=== PATIENT | female | born 1970 | race Caucasian/White ===

== ENCOUNTER 2022-11-05 14:35 | Outpatient (CLI) | payer OTHER, SELFPAY ==
--- NOTE | ~2022-11-05 | MM_ITS ---
EXAMINATION: MM screening clotilde BI w clement HISTORY: Screening mammogram TECHNIQUE: Craniocaudal and mediolateral oblique 3-D tomosynthesis images were obtained and synthetic 2-D images were generated. CAD analysis was submitted and interpreted. COMPARISON: No prior mammogram is available for comparison at this institution. BREAST PARENCHYMAL COMPOSITION: There are scattered areas of fibroglandular density. FINDINGS: RIGHT BREAST: An asymmetry is present in the middle third of the breast on the craniocaudal view. LEFT BREAST: There is focal asymmetry in the posterior third of the upper outer quadrant of the breas t. An asymmetry is present in the anterior/middle third of the breast on the craniocaudal view. IMPRESSION: 1. Bilateral breast findings as described above. 2. Additional mammographic views and possible breast ultrasound are recommended. BI-RADS Category 0: Incomplete: Needs additional imaging evaluation. Reviewed, dictated and finalized at location A. [employer] IMPRESSION: 1. Bilateral breast findings as described above. 2. Additional mammographic views and possible breast ultrasound are recommended . BI-RADS Category 0: Incomplete: Needs additional imaging evaluation.
== END 2022-11-05 14:36 | disposition home or self-care (01) ==
LOC: ANHIMG 14:38
PROVIDERS: PCP Family Medicine; Visit Provider Nurse Practitioner Obstetrics & Gynecology
DX: Z12.31 Encounter for screening mammogram for malignant neoplasm of breast (principal); R92.8 Other abnormal and inconclusive findings on diagnostic imaging of breast
CPT/HCPCS: 77063; 77067

== ENCOUNTER 2022-11-22 13:39 | Outpatient (CLI) | payer OTHER, SELFPAY ==
--- NOTE | ~2022-11-22 | MMUS_ITS ---
EXAMINATION: MM diagnostic clotilde BI w clement, US breast BI complete HISTORY: Follow-up breast asymmetries TECHNIQUE: Additional 3-D tomosynthesis images of the breasts were performed and synthetic 2-D images were generated. CAD analysis was submitted and interpreted. High resolution bilateral complete breas t ultrasound was performed. COMPARISON: 11/05/2022 BREAST PARENCHYMAL COMPOSITION: Breast composed of scattered areas of fibroglandular density FINDINGS: MAMMOGRAPHIC FINDINGS: There are no suspicious masses, calcifications or architectural distortion in either breast to sugges t malignancy. ULTRASOUND: Complete bilateral US of all 4 quadrants of the breasts and retroareolar region was reviewed. In the right breast at 1:00, 5 cm from the nipple, there is a 4 mm cyst. No suspicious masses are identified in either breast to suggest malignancy. IMPRESSION: 1. No evidence for malignancy in either breast. 2. Routine yearly screening mammogram and regular clinical breast examination are recommended. BI-RADS Category 1: Negative Reviewed, dictated and finalized at location A. IMPRESSION: 1. No evidence for malignancy in either breast. 2. Routine yearly screening mammogram and regular clinical breast examination a re recommended. BI-RADS Category 1: Negative
--- NOTE | ~2022-11-22 | US_ITS ---
EXAMINATION: US soft tissue chest DATE: 11/22/2022 15:26 INDICATION: Chest lump. TECHNIQUE: Multiple grayscale and Doppler ultrasound images of the chest were obtained. COMPARISON: None FINDINGS: The inferior aspect of the xiphoid process of the sternum is directed anteriorly, which cor relates with the patient's area of concern. There is no abnormal mass. IMPRESSION: 1. Normal xiphoid process of the sternum correlating with the patient's area of concern. Reviewed, dictated and finalized at location A.
== END 2022-11-22 13:40 | disposition home or self-care (01) ==
PROVIDERS: PCP Family Medicine; Visit Provider Nurse Practitioner
DX: R92.8 Other abnormal and inconclusive findings on diagnostic imaging of breast (principal); R19.06 Epigastric swelling, mass or lump
CPT/HCPCS: 76604; 76641; 77062; 77066; G0279

== ENCOUNTER 2022-12-30 08:46 | Outpatient (NON) | payer OTHER, SELFPAY | END 2022-12-30 08:47 | disposition home or self-care (01) | LOC: ANHLAB 12-31 08:51 | PROVIDERS: PCP Family Medicine; Visit Provider Internal Medicine Gastroenterology | DX: Z12.11 Encounter for screening for malignant neoplasm of colon (principal) | CPT/HCPCS: 88305 ==

== ENCOUNTER 2022-12-30 10:10 | Day surgery (SDC) | payer OTHER, SELFPAY ==
[2022-11-29 09:21] VITALS: BMI 30.4
[2022-12-15 09:18] VITALS: BMI 30.1
--- NOTE | 2022-12-29 12:03 | WPDANESEPPF ---
Anes - Initial Pre Proc Eval Procedure: Operation Date: 12/30/22 11:30 Proposed Procedures p Screening Colonoscopy - Mikey Huff MD Date/Time: 12/29/22 12:03 Surgeon: Mikey Huff MD Pre Op Diagnosis: Neoplasm Screening Patient Data Age: 52 Gender: F Height: 1.59 m Weight: 76 kg Allergies Allergy/AdvReac Type Severity Reaction Status Date / Time No Known Allergies Allergy Unverified 12/15/22 09:18 Home Medications Medication Instructions Recorded Confirmed Type No Home Medications 11/05/22 12/15/22 History Patient hx anesthesia problems: none Family hx anesthesia problems: none Results Review: All pre-operative results and documents have been reviewed as part of the pre-operative evaluation. [facility] Past Medical History Medical History Obesity Smoker Social History Social History (Updated 11/05/22 @ 13:17 by Tricia Peterson [facility] Years smoked: 25 Smoking status: Current every day smoker Tobacco type: cigarettes and e-cigarettes/vaping Alcohol intake: current Alcohol use details: 3-4 times per week Substance use: never Substance use type: does not use Lack of Transportation: No Lack of Food: Never True Current Housing: I Have Housing Concerned About Future Housing: No Difficulty Paying Gas/Electric Bills: No Difficulty Paying for Meds: No Currently Unemployed: No Education: Associate Degree Difficulty w/ Childcare or Family Care: No Living arrangements: with family Spiritual care concerns: No Anes - Eval Final PreProcedure Day of Procedure 12/29/22 12:03 Patient weight: obese Heart: regular rate and rhythm Lungs: clear to auscultation and normal air movement Airway: Mallampati scale class II Neurological: alert and oriented Last oral intake: >/= 8 hours ASA classification: II Emergent: no Anesthetic plan: proceed Anesthesia type and monitoring: general GIVS Results Review: All pre-operative results and documents have been reviewed as part of the pre-operative evaluation. Informed Consent: The patient's anesthetic plan and its attendant risks and benefits were discussed with the patient/family/POA. Questions were solicited and answers provided to the satisfaction of the patient/family/POA.
--- NOTE | 2022-12-29 13:08 | PM.HPGS ---
History of Present Illness History of Present Illness Consent: Risks, benefits, and alternatives have been discussed and questions answered. Patient agrees to proceed with procedure. Chief complaint: Neoplasm Screening Narrative: Divya Ramirez is a 52 year old female was referred for colon cancer screening. Review of Systems Review of Systems: All systems reviewed & are unremarkable except as noted in HPI and below PMFSH Past Medical History Medical History Obesity Smoker Social History Social History Years smoked: 25 Smoking status: Current every day smoker Tobacco type: cigarettes and e-cigarettes/vaping Alcohol intake: current Alcohol use details: 3-4 times per week Substance use: never Substance use type: does not use Lack of Transportation: No Lack of Food: Never True Current Housing: I Have Housing Concerned About Future Housing: No Difficulty Paying Gas/Electric Bills: No Difficulty Paying for Meds: No Currently Unemployed: No Education: Associate Degree Difficulty w/ Childcare or Family Care: No Living arrangements: with family Spiritual care concerns: No Meds Home Medications and Allergies Home Medications Medication Instructions Recorded Confirmed Type No Home Medications 11/05/22 12/30/22 History Allergies Allergy/AdvReac Type Severity Reaction Status Date / Time No Known Allergies Allergy Unverified 12/30/22 10:53 Exam Const: General: alert Orientation/consciousness: patient oriented x3 Resp: Auscultation: clear to auscultation bilaterally Cardio: Rhythm: regular rhythm GI: GI Palp: Yes Soft to palpation and No Tenderness to palpation present (GI) Neuro: General: patient oriented x3 Assessment and Plan Assessment and plan (1) Screening for colon cancer: Code(s): Z12.11 - Encounter for screening for malignant neoplasm of colon Status: Acute Assessment and Plan: Colonoscopy with possible biopsy or polypectomy or cautery or injection of substances.
[2022-12-30 10:25] VITALS: BP 140/100; PULSE 66; RESP 20; TEMP 36.7; O2SAT 99
[2022-12-30] MEDS: LACTATED RINGERS 1,000 ML 150 ML IV CONT (10:57)
[2022-12-30 11:45] VITALS: BP 83/53; PULSE 56; RESP 16; O2SAT 98
[2022-12-30 11:55] VITALS: BP 102/72; PULSE 60; RESP 15; O2SAT 98
[2022-12-30 12:05] VITALS: BP 122/93; PULSE 59; RESP 15; O2SAT 100
--- NOTE | 2023-01-11 08:32 | WPDANESPN ---
Anes - Prog Note Post-Op Date/Time: 01/11/23 08:32 Cardiovascular status: normal Respiratory status: normal Airway patency: baseline Mental status: baseline Post-Op hydration status: normal Vital Signs: Last Vital Signs Temp 36.7 C 12/30/22 10:25 Pulse 59 L 12/30/22 12:05 Resp 15 12/30/22 12:05 BP 122/93 H 12/30/22 12:05 Pulse Ox 100 12/30/22 12:05 O2 Del Method Room Air 12/30/22 12:05 Pain Score (VAS): 0 Post-procedural complaints: none Patient Feedback: Patient satisfied with anesthetic care.
== END 2022-12-30 12:28 | disposition home or self-care (01) ==
PROVIDERS: PCP Family Medicine; Visit Provider Internal Medicine Gastroenterology
PROC: 0DJD8ZZ Inspection of Lower Intestinal Tract, Via Natural or Artificial Opening Endoscopic (ICD-10-PCS; CPT 45378; principal; 2022-12-30 11:30)
DX: Z12.11 Encounter for screening for malignant neoplasm of colon (principal)
CPT/HCPCS: 45385

== ENCOUNTER 2023-03-02 09:27 | Emergency (ER) | payer OTHER, SELFPAY ==
[2023-03-02 09:36] VITALS: BP 153/90; PULSE 87; RESP 18; TEMP 36.5; O2SAT 100
--- NOTE | 2023-03-02 09:36 | PC.NURSE ---
attempted visual acuity test but patient couldn't focus enough to look at the chart
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
[2023-03-02] MEDS: TETRACAINE HCL 0.5% OPHTH SOLN 4 ML BTL 1 DROP EACH EYE (10:14)
--- NOTE | 2023-03-02 10:24 | PC.NURSE ---
Took pt to wall Snellen Chart to check visual acuity, pt stated that it was ridiculous to check visual acuity with eye chart. Pt was not cooperative for visual acuity test. Provider notified.
== END 2023-03-02 11:07 | disposition home or self-care (01) ==
PROVIDERS: Emergency Provider Nurse Practitioner Adult Health; PCP Family Medicine
DX: H57.13 Ocular pain, bilateral (principal); E66.9 Obesity, unspecified; Z68.29 Body mass index [BMI] 29.0-29.9, adult; F17.210 Nicotine dependence, cigarettes, uncomplicated; F17.290 Nicotine dependence, other tobacco product, uncomplicated
CPT/HCPCS: 99283; A9270

== ENCOUNTER 2024-10-01 10:29 | Emergency (ER) | payer OTHER, SELFPAY ==
[2024-10-01 10:29] VITALS: BP 152/96; PULSE 72; RESP 16; TEMP 36.7; O2SAT 99
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
[2024-10-01] MEDS: LIDOCAINE 1% LOCAL INJ 10 ML VIAL 5 ML INFILTRATE (10:56)
[2024-10-01] MEDS: TETANUS,DIPHTHERIA,AC PERTUSSIS ADULT 0.5 ML (ADACEL) IM (10:57)
[2024-10-01 11:26] VITALS: BP 133/90; PULSE 65; RESP 18; O2SAT 99
--- OUTSIDE RECORDS SUMMARY | 2024-10-01 11:33 | XMS_ITS | Clinical Summary ---
Author Organization [facility] Address [address] [place] [address] Care Team Providers Care Tree Specialist Name Role Phone Unavailable Primary Care Provider Unavailabl e Social History Tobacco Use Types Packs/Day Years Used Date Smoking Tobacco: Never Assessed Comments Unknown Sex and Gender Information Value Date Recorded Sex Assigned at Not on file Legal Sex Female 5:42 PM CDT Gender Identity Not on file Sexual Orientation Not on file Plan of Treatment Health Maintenance Due Date Last Done Comments Hepatitis C Virus (HCV) Screening 1970 TdaP Immunization 1970 Hepatitis B Immunization (1 of 3 - 19+ 3-dose series) 02/20/1987 Pap Smear 02/20/1989 Cervical Cancer Screening (CCS) 02/20/1998 HPV/Cotest 02/20/1998 Colonoscopy 02/20/2013 Colorectal Cancer Screening 02/20/2013 Cologuard 02/20/2018 Immunochemical Fecal Occult Blood 02/20/2018 Mammogram 02/20/2018 Pneumococcal Immunization (5 0+ years) (1 of 1 - PCV) 02/20/2018 Zoster Immunization (1 of 2) 02/20/2018 Influenza Immunization (#1) 2024 SARS-COV-2 Immunization ( season) 2024 06/09/2021, 11/18/2020, 10/28/2020 Respiratory Syncytial Virus (RSV) Immunization (Adult) (1 - 1-dose 75+ series) 02/20/2043 Meningococcal Immunization (ACWY) Aged Out No longer eligible b ased on patient's age to complete this topic Pneumococcal Immunization Combined Aged Out No longer eligible b ased on patient's age to complete this topic Rotavirus Immunization Aged Out No lo nger eligible based on patient's age to complete this topic
--- OUTSIDE RECORDS SUMMARY | 2024-10-01 11:33 | XMS_ITS | Data Portability ---
Author Organization [facility] Address [address] [place] [address] [address] Care Team Providers Care Infrastructure Analyst Name Role Phone CHIDI ARGUELLES Primary Care Provider [phone] Assessment Encounter Date Assessment Date Assessment LastModified by Organization Details LastModified Time 11/05/2022 11/05/2022 Annual gynecological exam performed. Patient will come back in a year unless there are new symptoms. [email or web address] Not available 11/05/2022 09:57:40 Plan of Treatment Reminders Order Date Submit Date Provider Last Modified By Organization Details Last Modified Time Details Appointments None recorded. Lab None recorded. Referral None recorded. Procedures None recorded. Surgeries None recorded. Imaging MAMMO, screening, bilateral 2022 023 [facility], [address], [place], [address], 09:06:13 Medication Orders None recorded. Patient TargetsNo targets recorded. Patient InstructionsNo instructions recorded. Reason for Referral None Reported. Results Created Date Observation Date Name Description Value Unit Range Abnormal Flag Note LastModifiedBy Organization Detail LastModifiedTime 11/06/19 23 11/05/2022 IMAGE GUIDE D PAP AND HPV REGAR DLESS image guided Pap, HPV regardless of Pap result SEE RESULT S BELOW CASE REPOR T: Cytol ogy Gynec ologi dana Repor t Case: [id number] Autho tenzin g Provi khoa: Barney Castaneda Colle cted: 11/05 1349 TREE DRILLER Order ing Locat ion: [place] [facility] Recei christy: 11/06 0931 First Scree n: Maddi madeleine Mary Rescr een: Addie Gtz ret, CT Speci men: Scree tres Pap - Image d, Cervi x STATE MENT OF ADEQU ACY: Satis facto ry for evalu ation Trans forma tion zone compo nent prese nt FINAL DIAGN OSIS: Negat celeste for Intra epith elial Lesio n or Nick gardner (NIL) . Elect azeb hernández marilu d by Addie Gtz ret, CT on 2022 at 12:42 PM ----- ----- ----- ----- ----- ----- ----- ----- ----- ----- ----- ----- ----- ----- ----- ----- ----- ---- HPV RESUL TS: HPV mRNA E6/E7 : No HPV mRNA Detec stacey NOTE: This high risk HPV mRNA assay detec ts fourt een high- risk HPV types (16, 18, 31, 33, 35, 39, 45, 51, 52, 56, 58, 59, 66, 68) witho ut diffe renti ation . COMME NT: Note: This speci men was revie wed by a Cytot echno logis t and/o r Patho logis t (as indic ated in this repor t) after evalu ation using the Thinp rep Imagi ng Syste m. CLINI DANA INFOR MATIO N: Menst rual Statu s: LMP (if appli cable ): Clini dana Histo ry/Pr eviou s Pap: Type of Neopl carlitos (if appli cable ): Signi fican t Clini dana Findi ngs: Other Histo ry: Hormo david (if appli cable ): PAP EDUCA BRIDGER L NOTE: The Pap Test is a scree tres test with an inher ent false negat celeste rate. Liqui d-bas ed sampl ing may decre ase, but will not elimi errol, false negat celeste resul ts. A negat celeste resul t does not precl ude the prese nce and/o r devel opmen t of disea se, since the prese nce of abnor mal cells in the sampl e depen ds on the locat ion of the lesio n and sampl ing techn ique. Alexsandra nued regul ar scree tres is the best metho d of cance r preve ntion . If repor stacey cytol ogic findi ng do not corre late with physi dana and/o r histo rical findi ngs, furth er inves tigat ion is recom nerissa d, as clini thao warra nted. Not Available [facility] (Lab) [address], [place], [address], 11/10/2022 13:45:45 11/07/19 23 11/05/2022 MAMMO , scree tres, bilat eral No observ ation record ed. [address] [facility], [place], [address], 11/11/2022 10:20:33 11/09/19 23 11/05/2022 MAMMO , scree tres, bilat eral No observ ation record ed. [address], [address], 11/11/2022 10:20:33 Result Notes None recorded. Problems Name Problem SNOMED Code Status Onset Date Resolution Date Notes Provider Name and Address Organization Details Recorded Time SNOMED CT Concept Active 020 Encntr for scow hand exam (general) (routine) w/o abn findings;R ecorded Elsewhere: No Locatio n: [facility] rce: EHR Chroni c: N Practice ID: [id number] Billa ble Time: 09:00:00 AM Not Available [facility] Concept Active 020 Encntr for general adult medical exam w/o abnormal findings;R ecorded Elsewhere: No Locatio n: [facility] rce: EHR Chroni c: N Practice ID: [id number] Billa ble Time: 09:00:00 AM Not Available [facility] 0 21:26:33 Problem Notes None recorded. Procedures Surgical History Date Name Laterality Status Provider Name and Address Organization Details Recorded Time 0 Date of Last Pap Smear completed Itzel Saleem [facility] 11/05/2022 09:58:41 Imaging Results Imaging Date Name Status LastModified by Organiz ation Details LastModified Time 11/05/2022 MAMMO, screening, bilateral completed [address], [address], 11/11/2022 10:20:33 11/05/2022 MAMMO, screening, bilateral completed [address], [address], 11/11/2022 10:20:33 Procedure Notes None recorded. Medical Equipment None Reported. Medications Not known to be on any medication Vitals Date Recorded Body height Body mass index (BMI) Body weight Systolic blood pressure Diastolic blood pressure Provider Name and Address Organization Details Last Updated DateTime 11/05/2022 158.75 cm 30.6 kg/m2 87894.42 g 160 mm[Hg] 102 mm[Hg] Itzel Saleem [facility] 09:58:28 Social History Question Answer Notes LastModified by [employer] Details LastModified Time Tobacco Smoking Status Current Every Day Smoker Itzel Saleme [facility], [facility] 11/05/2022 09:59:43 What Is Your Level Of Alcohol Consumption? Moderate Information not available 11/05/2022 Are You Blind Or Do You Have Difficulty Seeing? No Information not available 11/05/2022 Are You Deaf Or Do You Have Serious Difficulty Hearing? No Information not available 11/05/2022 What Type Of Diet Are You Following? REGULAR Information not available 11/05/2022 Sex: Unknown Functional Status Question Answer Note LastModified by [employer] Details LastModified Time Do you have difficulty walking or climbing stairs? No Information not available 11/05/2022 Are you able to walk? YESWOREST Information not available 11/05/2022 Are you able to care for yourself? Yes Information not available 11/05/2022 Do you have difficulty dressing or bathing? No Information not available 11/05/2022 What is your exercise level? Moderate Information not available 11/05/2022 Mental Status None recorded. Family History Nothing Reported Notes:Family history of Adop stacey Medical History Condition Response Allergies (Food, seasonal, environmental ) N Other N Breast Cancer N Drug/Latex Allergies/Reactions N Blood Transfusion N Dermatologic Disorders N Lung Disease N Defects or Inherited Disease N Breast Problem N Gestational Diabetes N Hematologic disorders N Anesthesia Complications N History of STI N Deep Vein Thrombosis N Polycystic ovary syndrome N Anxiety Disorder N Autoimmune disease N Arthritis N Infertility N Polyps N Acid Reflux (GERD) N History of abnormal pap N Cancer N Stroke N Varicosities N Neurologic/Epilepsy N Endometriosis N High Cholesterol N Headaches N Fibromyalgia N Kidney Disease N Heart Problems N Kidney or Bladder Problems N Thyroid Problems N GI Problems N Eating Disorder N Anemia N Art (IVF or FET) N Psychiatric Illness N Ovarian Cancer N Diabetes N Pulmonary (TB, Asthma) N Hepatitis/Liver Disease N No Past Medical History N Eczema N Urinary Tract Infection N Abuse/Domestic Violence N Asthma N Trauma/Violence N Depression/ depression N Heart Disease N Pre-Eclampsia N Hypertension Y Osteoporosis N Thrombophilias N Gynecological History Statement/Question Response Abnormal Pap N Sexually Active? Y STIs/STDs N Age of first menstrual cycle 13 HPV Vaccine N Date of Last Pap Smear 10/19/2019 Sexual Problems? N Current Control Method Menopause LMP Unknown Obstetrics History GPAL:G 0 P 0 0 0 0 Past Encounters Encounter ID Performer Location Encounter Start Date Encounter Closed Date Diagnosis/Indication Diagnosis SNOMED-CT Code Diagnosis ICD10 Code Diagnosis Note [id number] Haylee Grant [facility] [address] [address] 11/05/2022 09:34:29 11/05/2022 10:26:45 Gynecologic examination 77448156 Z01.419 Take Calcium with Vitamin D 12-1500mg daily. Do monthly self breast exams. It is advised to get annual flu shot in the fall and she could obtain at [facility] or [facility] clinic. If you haven't received the Tdap vaccine in the last 10 years you should obtain one as well. Have mammogram yearly, bone density every 2-3 years and colonoscop y every 5-10 years depending on findings and history. Engage in daily exercise of low impact aerobic exercise 45-60 minutes 4-5 times weekly. Avoid tobacco and illicit drugs as well as using moderation with alcohol intake less than 1-2 8 oz beverages daily. This lifestyle behavior pattern will lead to less health conditions and longer life span. If BMI greater than 25 weight watchers or dietary consult advised. Questions have been answered. Patient appears to understand instructio ns, but if you have any further questions call or respond to this email Pap/hpv sentSTD Screen declinedGe netic Screen discussedC olon Screen PCPDexa Screen PCPRoutine Labs PCPMammo orderedEnc ourage smoking cessation. 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 Chidi Mancini ll discuss Health Concerns Section Related Observation LastModified by Organization Detai ls LastModified Time None Recorded Concern Status LastModified by Organization Details LastModified Time None Recorded Advance Directives Directive None Recorded Payers Encounter Date Sequence Insurance Name Policy Number Policy Arriola Covered Member ID Arriola Member ID Guarantor Name 11/05/2022 1 [facility] [id number] Divya Ramirez [id number] Divya Ramirez Notes Date Note Type Note Provider Name and Address Organization Details Recorded Time 11/05/2022 text/html Annual Head Of Advertising Post-MenopausalRe ported bypatient.[place] odalys Symptoms:no menopausal symptoms; normal vaginal lubrication Vaginal Bleeding:history of menopause having occurred; no history of post menopausal bleeding Urinary Symptoms:no hematuria; no incontinence; no nocturia; no urinary frequency Vulva:no genital lesion; no vulvar atrophy Vagina:normal vaginal discharge; no vaginal atrophy Breast:no breast lump; no nipple discharge; no breast pain Sexual Complaints:no sexual complaints Psychological Symptoms:no depression; no anxiety Preventive Measures:encourag e regular mammograms starting age 40; encourage self breast examination; encourage regular exercise; encourage no tobacco use; needs to schedule mammogram; needs to schedule colonoscopy; needs to schedule bone density Haylee Grant, [facility]- [address], [place], [address], [facility] 11/05/2022 10:22:48 OBGyn Episode No OBEpisode recorded.
--- OUTSIDE RECORDS SUMMARY | 2024-10-01 11:33 | XMS_ITS | Referral Summary ---
Author Organization [facility] Address [address] [place] [address] Care Team Providers Care Bilingual Office Assistant Name Role Phone Unavailable Primary Care Provider Unavailabl e Source Comments [facility],non-owned Affiliates and Associated Physician Practices is amultiple site organization consisting of ambulatory clinics and hospital sitesin [place], [place], [place] and [place]. This disclosure is being madepursuant to the Care Everywhere program and may not contain all information available regarding this patient. Last updated 18.[employer] [facility] Allergies No known active allergies Medications * Be aware that medications may not be up to date on this document. Alwaysverify current medications with the patient. Medication Sig Dispensed Refills Start Date End Date Status benzonatate (TESSALON) 200 MG capsuleIndications:A cute bronchitis, unspecified organism Take 1 Cap by mouth 3 times daily as needed for Cough 30 Cap 05/24/2017 Active Additional Information Patient not taking.Reported on 05/21/2019 predniSONE (DELTASONE) 10 MG tabletIndications:Ac mcgrath bronchitis, unspecified organism Take 50 mg daily x 1 days, 40 mg daily x 1 days, 30 mg daily x 1 days, 20 mg daily x 1 days, 10 mg daily x 1 days 15 Tab 05/24/2017 Active Additional Information Patient not taking.Reported on 05/21/2019 Social History Tobacco Use Types Packs/Day Years Used Date Smoking Tobacco: Former Smokeless Tobacco: Never Sex and Gender Information Value Date Recorded Sex Assigned at Not on file Gender Identity Not on file Sexual Orientation Not on file Last Filed Vital Signs Vital Sign Reading Time Taken Comments Blood Pressure 122/78 05/21/2019 9:27 AM CDT Pulse 67 05/21/2019 9:27 AM CDT Temperature 37.1 ??C (98.8 ??F) 05/21/2019 9:27 AM CD T Respiratory Rate 16 05/21/2019 9:27 AM CDT Oxygen Saturation 98% 05/21/2019 9:27 AM CDT Inhaled Oxygen Concentration - - Weight 68 kg (150 lb) 05/21/2019 9:27 AM CDT Height 158.8 cm (5' 2.5 ) 05/21/2019 9:27 AM CDT Body Mass Index 27 05/21/2019 9:27 AM CDT Plan of Treatment Not on file TARAH SALDANA Personal/Famil y 1970 [phone] (Home) [address] [place] [address] Divya Saldana Personal/Famil y Self 1970 [phone] (Home) [address] [place] [address]
--- OUTSIDE RECORDS SUMMARY | 2024-10-01 11:33 | XMS_ITS | Patient Health Summary ---
Author Organization [facility] [employer] Address [address] [place] [address] Care Team Providers Care Real Estate Processor Name Role Phone Unavailable Primary Care Provider Unavailabl e Note from [facility],non-owned Affiliates and Associated Physician Practices is amultiple site organization consisting of ambulatory clinics and hospital sitesin [place], [place], [place] and [place]. This disclosure is being madepursuant to the Care Everywhere program and may not contain all information available regarding this patient. Last updated 18.[facility] [employer] Allergies No known active allergies Medications * Be aware that medications may not be up to date on this document. Alwaysverify current medications with the patient. * benzonatate (TESSALON) 200 MG capsule(Started 05/24/2017) Take 1 Cap by mouth 3 times daily as needed for Cough * predniSONE (DELTASONE) 10 MG tablet(Started 05/24/2017) Take 50 mg daily x 1 days, 40 mg daily x 1 days, 30 mg daily x 1 days, 20 mg daily x 1 days, 10 mg daily x 1 days Social History Tobacco Use Types Packs/Day Years [...] Mass Index 27 05/21/2019 9:27 AM CDT Procedures * STREP A SCREEN - POINT OF CARE (AMB) STL(Performed 05/21/2019) Performed for Acute pharyngitis, unspecified etiology Results * STREP A SCREEN - POINT OF CARE (AMB) STL (05/21/2019) Strep A Rapid POCT Negative Negative Strep A Internal Control Present Lot # [id number] Expiration Date 08/28/20 Throat ENTIRE THROAT (SURFACE REGION OF NECK) / Unknown 05/21/2019 Duncan Davies EQUIPMENT RECORDS SUPERVISOR-PATIENT AMBASSADOR LAB - POINT OF CARE ORDERABLES
--- OUTSIDE RECORDS SUMMARY | 2024-10-01 11:33 | XMS_ITS | Clinical Summary ---
Author Organization [facility] [employer] Address [address] [place] [address] Care Team Providers Care New Car Driver Name Role Phone Unavailable Primary Care Provider Unavailabl e Source Comments [facility] [employer],non-owned Affiliates and Associated Physician Practices is amultiple site organization consisting of ambulatory clinics and hospital sitesin [place], [place], [place] and [place]. This disclosure is being madepursuant to the Care Everywhere program and may not contain all information available regarding this patient. Last updated 18.[employer] Allergies No known active allergies Medications * [...] on 05/21/2019 predniSONE (DELTASONE) 10 MG tabletIndications:Ac point hope ira bronchitis, unspecified organism Take 50 mg daily [...] 05/21/2019 9:27 AM CDT Plan of Treatment Health Maintenance Due Date Last Done Comments COLOGUARD (AGES 45-75) - COL ON CA SCREENING 1970 COLON MONITORING 1968 COLONOSCOPY - COLON CA SCREENING 1968 CT COLONOGRAPHY - COLON CA SCREENING 1968 Colorectal Cancer Screening 1968 FIT - COLON CA SCREENING 1968 FLEX SIG - COLON CA SCREENING 1968 LIPID TESTING 1970 MAMMOGRAM 1970 PAP SMEAR 1968 HIV SCREENING 02/20/1983 HEPATITIS C SCREENING 02/16/1986 DTAP/TDAP/TD VACCINES (1 - Tdap) 02/20/1987 HEPATITIS B VACCINE (1 of 3 - 19+ 3-dose series) 02/20/1987 PNEUMOCOCCAL VACCINE 50+ (1 of 1 - PCV) 02/20/2018 ZOSTER VACCINE (1 of 2) 02/20/2018 SCREENING FOR DIABETES 09/05/2018 COVID-19 VACCINE (1 - 2023-2 5 season) 2024 INFLUENZA VACCINE (#1) 2024 DEPRESSION SCREENING 08/29/2024 HIB VACCINE Aged Out No longer eligi ble based on patient's age to complete this topic HPV VACCINE Aged Out No longer eligi ble based on patient's age to complete this topic MENINGOCOCCAL (Group B) VACCINE Aged Out No longer eligible based on patient's age to complete this topic MENINGOCOCCAL VACCINE Aged Out No lenny adela eligible based on patient's age to complete this topic PNEUMOCOCCAL VACCINE Aged Out No long er eligible based on patient's age to complete this topic TARAH SALDANA Personal/Famil y 1970 [address] [place] [address] Divya Saldana Personal/Famil y Self 1970 [address] [place] [address]
--- OUTSIDE RECORDS SUMMARY | 2024-10-01 12:33 | XMS_ITS | Referral Summary ---
Author Organization [facility] [employer] Address [address] [place] [address] Care Team Providers Care Automation And Controls Supervisor Name Role Phone Unavailable Primary Care Provider Unavailabl e Source Comments [facility] [employer],non-owned Affiliates and Associated Physician Practices is amultiple site organization consisting of ambulatory clinics and hospital sitesin [place], [place], [place] and [place]. This disclosure is being madepursuant to the Care Everywhere program and may not contain all information available regarding this patient. Last updated 18.[employer] Allergies No known active allergies Medications * [...] on 05/21/2019 predniSONE (DELTASONE) 10 MG tabletIndications:Ac rincon bronchitis, unspecified organism Take 50 mg daily [...] 1970 [phone] (Home) [address] [place] [address] Divya Saldana Personal/Famil y Self 1970 [phone] (Home) [address] [place] [address]
--- OUTSIDE RECORDS SUMMARY | 2024-10-01 12:33 | XMS_ITS | Clinical Summary ---
Author Organization [facility] [employer] Address [address] [place] [address] Care Team Providers Care School Administrator Name Role Phone Unavailable Primary Care Provider Unavailabl e Source Comments [facility] [employer],non-owned Affiliates and Associated Physician Practices is amultiple site organization consisting of ambulatory clinics and hospital sitesin [place], [place], [place] and [place]. This disclosure is being madepursuant to the Care Everywhere program and may not contain all information available regarding this patient. Last updated 18.[employer] Allergies No known active allergies Medications * [...] on 05/21/2019 predniSONE (DELTASONE) 10 MG tabletIndications:Ac sioux bronchitis, unspecified organism Take 50 mg daily [...] SALDANA Personal/Famil y 1970 [address] [place] [address] Divya Saldana Personal/Famil y Self 1970 [address] [place] [address]
--- OUTSIDE RECORDS SUMMARY | 2024-10-01 12:33 | XMS_ITS | Patient Health Summary ---
Author Organization [facility] [employer] Address [address] [place] [address] Care Team Providers Care Habitat Management Coordinator Name Role Phone Unavailable Primary Care Provider Unavailabl e Note from [facility],non-owned Affiliates and Associated Physician Practices is amultiple site organization consisting of ambulatory clinics and hospital sitesin [place], [place], [place] and [place]. This disclosure is being madepursuant to the Care Everywhere program and may not contain all information available regarding this patient. Last updated 18.[facility] [employer] Allergies No known active allergies Medications * [...] Strep A Internal Control Present Lot # [id number] Expiration Date 08/28/20 Throat ENTIRE THROAT (SURFACE REGION OF NECK) / Unknown 05/21/2019 Duncan Davies SAXOPHONE TEACHER-WINDCHILL ADMINISTRATOR LAB - POINT OF CARE ORDERABLES
--- OUTSIDE RECORDS SUMMARY | 2024-10-01 12:33 | XMS_ITS | Clinical Summary ---
Author Organization [facility] Address [address] [place] [address] Care Team Providers Care Business Segment Manager Name Role Phone Unavailable Primary Care Provider [...]
== END 2024-10-01 11:26 | disposition home or self-care (01) ==
LOC: CHSED 11:14
PROVIDERS: Emergency Provider Internal Medicine Critical Care Medicine; PCP Family Medicine
DX: S61.210A Laceration without foreign body of right index finger without damage to nail, initial encounter (principal); F17.210 Nicotine dependence, cigarettes, uncomplicated; W25.XXXA Contact with sharp glass, initial encounter; Z23 Encounter for immunization
CPT/HCPCS: 12001; 90715; 99283; J2003